=== PATIENT | female | born 1985 | race African-American/Black ===

== ENCOUNTER 2017-08-27 07:58 | Emergency (ER) | payer SELFPAY ==
--- NOTE | 2017-08-27 09:37 | RAD ---
CHEST TWO VIEWS: History: Cough, sore throat, runny nose. Comparison: None. FINDINGS: Lungs are clear. No pneumothorax or effusion. Cardiac silhouette and mediastinal contours are within normal limits. IMPRESSION: No acute intrathoracic abnormality. POS: C
== END 2017-08-27 10:00 | disposition home or self-care (01) ==
LOC: ERS 07:58
DX: R05 Cough (principal); I10 Essential (primary) hypertension
CPT/HCPCS: 71046; A4353

== ENCOUNTER 2020-07-09 11:45 | Emergency (ER) | payer OTHER, SELFPAY ==
[~2020-07-09 11:45] MED LIST: Iopamidol-370 76% 500 ML 1 ML ONE
[2020-07-09] MEDS ORDERED: Ketorolac Tromethamine 30 MG/ML VIAL ONE (12:04)
[2020-07-09 12:18] LABS: #Lymphocytes 1.4 thou/uL (1.20-3.40); #Monocytes 0.5 thou/uL (0.11-0.59); %Basophils 0.4 % (0.0-1.0); %Eosinophils 0.1 % (0.0-10.0); %Lymphocytes 15.6 % (21.0-51.0); %Monocytes 5.2 % (0.0-10.0); %Neutrophils 78.7 % (42.0-75.0); Hemoglobin 13.6 g/dL (12.0-16.0); Mean Corpuscular HGB CONC 33.3 g/dL (32.0-36.0); Mean Corpuscular Hemoglobin 29.2 pg (27.0-31.0); Mean Corpuscular Volume 87.5 fL (78.0-98.0); Mean Platelet Volume 8.5 fL (7.4-10.4); Platelet Count 238 thou/uL (130-400); Red Blood Cell (RBC) Count 4.66 mill/uL (4.20-5.40); White Blood Cell (WBC) Count 8.9 thou/uL (4.8-10.8)
[2020-07-09 12:24] LABS: BHCG - Serum Negative (NEGATIVE); Pregs Control Background? CLEAR/WHITE (CLR/WHITE); Pregs Control Bar Appear? YES (CONTROL BAR)
[2020-07-09 12:38] LABS: ALT (SGPT) 15 U/L (8-55); AST (SGOT) 19 U/L (5-34); Albumin 4.3 g/dL (3.5-5.0); Alkaline Phosphatase 83 U/L (40-110); Anion Gap 18 mmol/L (10-20); BUN (Urea Nitrogen) 9 mg/dL (7.0-18.7); Bilirubin, Total 0.5 mg/dL (0.2-1.2); Calc. Creatinine Clearance 0 mL/min (70-130); Calcium 9.2 mg/dL (7.8-10.44); Carbon Dioxide 21 mmol/L (22-29); Chloride 100 mmol/L (98-107); Globulin 4.1 g/dL (2.4-3.5); Glucose 189 mg/dL (70-105); Lipase 6 U/L (8-78); Potassium 3.5 mmol/L (3.5-5.1); Protein, Total 8.4 g/dL (6.0-8.3); Sodium 135 mmol/L (136-145)
[2020-07-09] MEDS ORDERED: Dexamethasone 10 MG/ML VIAL ONE (14:23)
[2020-07-09] MEDS ORDERED: Acetaminophen 500 MG TAB ONE (14:38)
== END 2020-07-09 15:30 | disposition home or self-care (01) ==
LOC: ERS 11:45
DX: U07.1 COVID-19 (principal)
CPT/HCPCS: 36415; 71275; 80053; 83690; 84484; 84703; 85025; 93005; 96374; 96375; J1100; J1885; Q9967